=== PATIENT | female | born 1990 | race African-American/Black ===

== ENCOUNTER 2022-02-04 19:06 | Emergency (ER) | payer MEDICAID, OTHER ==
[~2022-02-04] VITALS: Ht 152.4 cm; Wt 45.0 kg
[2022-02-04] MEDS ORDERED: IBUPROFEN 600MG TABLET PO ONE (21:00)
[2022-02-04] MEDS ORDERED: IBUP-2029 MT (22:22)
[2022-02-04] MEDS ORDERED: CYCL10TA21 MT (22:22)
[2022-02-04 22:35] VITALS: BP 124/78
== END 2022-02-04 22:38 | disposition home or self-care (01) ==
LOC: ER 19:06
DX: S09.8XXA Other specified injuries of head, initial encounter (principal); S10.93XA Contusion of unspecified part of neck, initial encounter; F12.10 Cannabis abuse, uncomplicated; V43.52XA Car driver injured in collision with other type car in traffic accident, initial encounter; Y93.89 Activity, other specified; Y92.488 Other paved roadways as the place of occurrence of the external cause
CPT/HCPCS: 81025; 99284